=== PATIENT | female | born 1955 | race Caucasian/White ===

== ENCOUNTER 2023-01-31 10:25 | Emergency (ER) | payer MEDICARE, OTHER, SELFPAY ==
--- NOTE | ~2023-01-31 | XR_ITS ---
EXAMINATION: XR knee RT 3V DATE: 01/31/2023 11:26 INDICATION: Right knee pain TECHNIQUE: Three views of the right knee were obtained. COMPARISON: None. FINDINGS: Alignment is normal. No fracture or osteochondral lesion. There is tricompartmental osteoar thritis of the knee, moderate to severe in the medial compartment. There is a trace degenerative effu pao. Soft tissues are unremarkable. IMPRESSION: 1. Osteoarthritis without acute osseous abnormality. Reviewed, dictated and finalized at location A.
[2023-01-31 10:44] VITALS: BP 131/72; PULSE 82; RESP 16; TEMP 37.3; O2SAT 98
[2023-01-31 10:49] VITALS: BP 131/72; PULSE 82; RESP 16; TEMP 37.3; O2SAT 98
--- NOTE | 2023-01-31 11:08 | ED.LOWEXIN ---
HPI - Extremity Injury (Lower) General Chief Complaint: Extremity Injury, Lower Stated Complaint: right knee pain Time Seen by Provider: 01/31/23 11:09 Source: patient Mode of arrival: ambulatory Limitations: no limitations History of Present Illness HPI Narrative: 67-year-old female presents with complaint of right knee pain. patient reports that she recently got back from a 10 day trip to [place]. States she did a lot of walking. Reports that she has had intermittent pain to her right knee for several months but has never been this bad. Patient thinks that is related to all the walking she did and wanted. Reports that she is unable to stand on right leg for long period of time due to right knee pain. Has not called her primary care physician regarding pain. All systems reviewed and negative except as noted above. Related Data Home Medications Medication Instructions Recorded Confirmed [facility] 01/31/23 Allergies Allergy/AdvReac Type Severity Reaction Status Date / Time No Known Allergies Allergy Verified 01/31/23 10:28 Review of Systems Review of Systems: CONSTITUTIONAL: Denies fever, chills, or sweats. EYES: Denies visual changes, redness, or discharge. ENT: Denies rhinorrhea, congestion, sore throat, or otalgia. CARDIOVASCULAR: Denies chest pain, palpitations, or edema. RESPIRATORY: Denies cough or dyspnea. GASTROINTESTINAL: Denies abdominal pain, nausea, vomiting, or diarrhea. GENITOURINARY: Denies dysuria or hematuria. SKIN: Denies rash or itching. MUSCULOSKELETAL: Reports right knee pain and swelling. NEUROLOGIC: Denies headache, numbness, or weakness. PSYCHIATRIC: Denies anxiety or depression. All other systems reviewed are negative, except as documented in HPI. PMFSH Social History Social History Smoking status: Never smoker Alcohol intake: never Comments At time of signature, agree with nursing past medical, surgical, social and family history. There is no relevant family history pertinent to the presenting complaint. Exam Narrative: GENERAL: This is a well-nourished, well-developed patient, in no apparent distress. HEAD: normocephalic, atraumatic. EYES: PERRL. Sclera clear/white. Vision is grossly intact. EARS: External ears normal NOSE: External nose normal NECK: Neck supple, non-tender without lymphadenopathy, masses or thyromegaly. CARDIOVASCULAR: Regular rate and rhythm without murmurs, gallops, or rubs. RESPIRATORY: Clear to auscultation. Breath sounds equal bilaterally. No wheezes, rales, or rhonchi. SKIN: warm, Dry, intact with no suspicious lesions or rash, good texture and turgor. NEURO: awake, alert, and oriented to person, place and time. There were no obvious focal neurologic abnormalities. EXTREMITIES: Tenderness to medial aspect of right knee with swelling. No erythema or warmth. Course Course Level of Care: Express Care Visit Vital Signs Vital signs: Vital Signs Temperature 37.3 C 01/31/23 10:44 Pulse Rate 82 01/31/23 10:44 Respiratory Rate 16 01/31/23 10:44 Blood Pressure 131/72 01/31/23 10:44 Pulse Oximetry 98 01/31/23 10:44 Oxygen Delivery Room Air 01/31/23 10:44 Temperature 37.3 C 01/31/23 10:49 Pulse Rate 82 01/31/23 10:49 Respiratory Rate 16 01/31/23 10:49 Blood Pressure 131/72 01/31/23 10:49 Pulse Oximetry 98 01/31/23 10:49 Oxygen Delivery Room Air 01/31/23 10:49 Reviewed MDM - Extremity Injury (Lower) MDM Narrative Medical decision making narrative: Patient is aware of diagnosis, understands and agrees to treatment plan. Anticipatory guidance given. Patient agrees to follow-up as directed and is aware of reasons to seek care at the emergency department. Portions of this record may have been created with voice recognition software discussed x-ray results with patient. Recommend follow-up with primary care physician for further evaluation and treatment of pain. Differenti
== END 2023-01-31 12:18 | disposition home or self-care (01) ==
PROVIDERS: Emergency Provider Nurse Practitioner Family; PCP Family Medicine
DX: M17.11 Unilateral primary osteoarthritis, right knee (principal)
CPT/HCPCS: 73562; 99213; G0463

== ENCOUNTER 2023-04-07 22:41 | Emergency (ER) | payer MEDICARE, OTHER, SELFPAY ==
--- NOTE | ~2023-04-07 | XR_ITS ---
EXAMINATION: XR ribs RT 2V w CXR 2V DATE: 04/07/2023 23:03 INDICATION: Right rib pain. Cough. TECHNIQUE: Frontal and lateral views of the chest and 2 views on 3 radiographs of the right ribs were obtained. COMPARISON: None. FINDINGS: CHEST TWO VIEWS: There is mild atelectasis in left lower lung zone. No pleural effusion or pneumothor ax. The heart size is normal. There is a large hiatal hernia. There are compression fractures in mid thoracic spine, likely chronic. RIGHT RIBS: There are old healed right rib fractures. IMPRESSION: 1. No acute rib fracture identified. 2. Large hiatal hernia. 3. Mild atelectasis in left lower lung zone. Reviewed, dictated and finalized at location A.
[2023-04-07 22:47] VITALS: BP 151/81; PULSE 77; RESP 16; TEMP 36.6; O2SAT 96
[2023-04-08 04:45] VITALS: BP 179/78; PULSE 67; RESP 16; TEMP 36.8; O2SAT 98
[2023-04-08 05:30] VITALS: BP 153/88; PULSE 75; RESP 16; O2SAT 98
--- NOTE | 2023-04-08 05:37 | ED.GENADULT ---
HPI - General Adult General Chief complaint: Unspecified Stated complaint: rib pain Time Seen by Provider: 04/08/23 04:44 Source: patient Limitations: no limitations History of Present Illness HPI narrative: Patient is a 67 year od female presenting to the emergency department accompanied by for concerns that she may have broken a rib. Patient states she has been coughing for the past 4 weeks and has been placed on multiple antibiotics for this and overall is improving, however over the past 1 week she has noticed a gradual soreness devleloping in her right lower lateral ribs. Pain is better when splinting. No history of injuries. Pain is worse with coughing, yawning, deep breath, certain torso movements. Denies history of this pain in the past. No history of blood clots. No pain at rest. Non radiating. Tried Motrin tonight with no significant changes. Patient stated her right lower ribs Related Data Allergies Allergy/AdvReac Type Severity Reaction Status Date / Time No Known Allergies Allergy Verified 03/26/23 10:44 Review of Systems Review of Systems: A 10 system review of systems was completed on the patient and is negative except for what is stated in the HPI. Nursing and ancillary documentation was reviewed. [facility] Past Medical History Medical History (Updated 04/09/23 @ 00:01 by Aliya Cardoza) Acute sinus infection Allergies Arthritis BMI 33.0-33.9,adult BMI greater than 30 Surgical History Surgical History Hx of hysterectomy Hx of tonsillectomy Family History Family History Father Diabetes mellitus Mother Hypertension Sibling Sibling Heart disease Other Asthma Cerebrovascular accident Kidney disease Social History Social History Smoking status: Never smoker Second hand tobacco smoke exposure: No Alcohol intake: current Alcohol use details: WINE Substance use: never Substance use type: does not use Lack of Transportation: No Lack of Food: Never True Current Housing: I Have Housing Concerned About Future Housing: No Difficulty Paying Gas/Electric Bills: No Difficulty Paying for Meds: No Currently Unemployed: No Education: Bachelor's Degree Difficulty w/ Childcare or Family Care: No Living arrangements: with family Occupation/Education: retired Additional occupation/education comments: teacher Gender identity (if verbalized by the patient): Female Comments At time of signature, I have reviewed and agree with nursing past medical, surgical, social and family history unless otherwise noted. Please see the nursing chart for further information. There is no relevant family history pertinent to the presenting complaint. Exam Narrative: CONST: No acute distress. Well nourished. HENMT: Head is normocephalic and atraumatic. Moist mucous membranes. No posterior oropharynx erythema. EYES: No conjunctival icterus, injection, or pallor. PERRL. NECK: No meningeal signs. RESP: Able to speak in full sentences. Normal respiratory effort. CTAB. CARDIO: Regular rate. Regular rhythm. 2+ DP and radial pulses bilaterally. GI: Nondistended. No tenderness to palpation. Soft. : No CVA tenderness to palpation. SKIN: No rashes or lesions noted on exposed skin. NEURO: Oriented x3. Moves all extremities. EXTREM/MSK: No pedal edema. Mild right lateral inferior chest wall tenderness to palpation without rash or crepitus or deformity. No midline vertebral tenderness to palpation or step offs. PSYCH: Normal affect. Course Vital Signs Vital signs: Vital Signs Temperature 97.8 F 04/07/23 22:47 Pulse Rate 77 04/07/23 22:47 Respiratory Rate 16 04/07/23 22:47 Blood Pressure 151/81 H 04/07/23 22:47 Pulse Oximetry 96 04/07/23 22:47 Oxygen Deliv
[2023-04-08 06:20] VITALS: BP 157/86; PULSE 64; RESP 16; TEMP 36.8; O2SAT 98
[2023-04-08 07:12] LABS: D Dimer 0.38 ug/mL (<0.48)
[2023-04-08 07:16] VITALS: BP 150/81; PULSE 66; RESP 16; TEMP 36.8; O2SAT 100
--- NOTE | 2023-04-08 07:58 | PC.NURSE ---
respiratory came down and worked on incentive spirometer with pt
[2023-04-08 08:08] VITALS: BP 156/87; PULSE 75; RESP 18; O2SAT 95
== END 2023-04-08 08:15 | disposition home or self-care (01) ==
PROVIDERS: Emergency Provider Student in an Organized Health Care Education/Training Program; PCP Family Medicine
DX: R07.81 Pleurodynia (principal); M19.90 Unspecified osteoarthritis, unspecified site; Z90.710 Acquired absence of both cervix and uterus; K44.9 Diaphragmatic hernia without obstruction or gangrene
CPT/HCPCS: 36415; 71046; 71100; 85380; 99283

== ENCOUNTER → 2023-05-19 12:13 | Outpatient (CLI) | payer MEDICARE, OTHER, SELFPAY ==
--- NOTE | ~2023-05-19 | MM_ITS ---
EXAMINATION: MM screening kahlil BI w elizabeth HISTORY: Screening TECHNIQUE: Craniocaudal and mediolateral oblique 3-D tomosynthesis images were obtained and synthetic 2-D images were generated. CAD analysis was submitted and interpreted. COMPARISON: 08/31/2014 BREAST PARENCHYMAL COMPOSITION: There are scattered areas of fibroglandular density. FINDINGS: There is no evidence of suspicious mass, calcification, or architectural distortion to sugg est malignancy in either breast. There has been no suspicious interval change. IMPRESSION: 1. No mammographic evidence of malignancy. 2. Recommend routine screening mammography in one year. BI-RADS Category 1: Negative Reviewed, dictated and finalized at location A.
== END ==
PROVIDERS: PCP Physician Assistant Medical; Visit Provider Physician Assistant Medical
DX: Z12.31 Encounter for screening mammogram for malignant neoplasm of breast (principal)
CPT/HCPCS: 77063; 77067

== ENCOUNTER 2024-08-01 16:57 | Outpatient (CLI) | payer MEDICARE, OTHER, SELFPAY ==
--- NOTE | ~2024-08-01 | XR_ITS ---
Left Shoulder Technique: AP and scapular Y views were obtained. Clinical History: Pain Findings: No fracture or dislocation is seen. Osseous alignment is anatomic. There is mild degenerati ve change of the glenohumeral joint. There is probable subacromial spur. Soft tissues are unremarkabl e. Impression: Degenerative changes, as above. Reviewed, dictated and finalized at location . [facility] [facility] Impression: Degenerative changes, as above.
== END 2024-08-01 16:58 | disposition home or self-care (01) ==
PROVIDERS: PCP Family Medicine; Visit Provider Orthopaedic Surgery
DX: M19.012 Primary osteoarthritis, left shoulder (principal)
CPT/HCPCS: 73030

== ENCOUNTER 2025-05-19 09:55 | Outpatient (CLI) | payer MEDICARE, OTHER, SELFPAY ==
--- NOTE | 2025-05-19 10:27 | ECG_ITS ---
Test Date: 2025-05-19 10:47:32 Measurements Intervals [place] Rate: 59 P: 31 VT: 182 QRS: 12 QRSD: 87 T: 36 QT: 411 QTc: 410 Interpretive Statements SINUS BRADYCARDIA BORDERLINE ECG No previous ECG available for comparison Electronically Signed On 05-19-2025 11:11:57 CDT by Sergio Wagner D.O.
[2025-05-19 11:07] LABS: Hematocrit 47.5 % (37.0-47.0); Hemoglobin 15.7 g/dL (12.0-15.0); Immature Granulocyte Percent A 0.2 % (0-0.5); Lymphocytes Absolute Auto 1.68 K/mm3 (0.9-3.2); Mean Corpuscular HGB Conc 33.1 g/dl (32-36); Mean Corpuscular Hemoglobin 31.7 pg (26-34); Mean Corpuscular Volume 95.8 fl (80-100); Nucleated Red Blood Cells Absolute Auto 0.000 K/mm3 (0.0-0.012); Nucleated Red Blood Cells Perc 0.0 % (0.0-0.2); Platelet Count Result 225 k/mm3 (150-375); Red Blood Count 4.96 M/mm3 (4.2-5.4); White Blood Count 5.6 K/mm3 (4.5-10.0)
[2025-05-19 11:17] LABS: Hemoglobin A1C 5.5 % (<5.7)
[2025-05-19 11:58] LABS: Albumin Level 4.4 g/dL (3.5-5.1); Estimated Glomerular Filt Rate > 60; Glucose 85 mg/dL (65-110)
[2025-05-19 12:26] LABS: MRSA (PCR) NOT DETECTED (NOT DETECTE)
== END 2025-05-19 09:56 | disposition home or self-care (01) ==
LOC: ANHSURGERY 10:00
PROVIDERS: PCP Family Medicine; Visit Provider Orthopaedic Surgery
DX: Z01.818 Encounter for other preprocedural examination (principal); M17.11 Unilateral primary osteoarthritis, right knee
CPT/HCPCS: 80307; 82040; 82565; 82947; 83036; 85025; 86850; 86900; 86901; 87641; 93005

== ENCOUNTER 2025-05-29 02:14 | Day surgery (SDC) | payer MEDICARE, OTHER, SELFPAY ==
[2025-05-19 10:07] VITALS: PULSE 66; RESP 16; TEMP 36.8; O2SAT 99; BMI 34.8
--- NOTE | 2025-05-19 10:20 | PC.NURSE ---
[facility] has started construction of its new state of the art ER which will open Spring 2026. With this, we anticipate parking may be a challenge for some our surgical patients and families. Parking spaces are limited but are available for all Surgical, obstetrics, and ER patients sharing this lot. If you arrive and find you are having a hard time finding a parking space, please note that we understand the challenges, please drive around the hospital and park near Hospital Entrance 1. When you enter this entrance, you can ask a volunteer to direct or take you back to the surgical waiting area to check in. We appreciate everyone?s understanding of these expected challenges while we build for your future. Report to the Outpatient Waiting Room, entrance under the green pavilion located off [address], at time __0600am on date _05/29/25 . Planned Procedure Time: _0730am .? Time changes happen often and if your time is changed the preop area will call you the afternoon before. - You and your visitor will be asked to self-screen and do not enter if you have any COVID symptoms. Please call surgeon if you need to reschedule. - A mask is optional within the hospital at this time. Patients may have clear liquids (water, carbonated beverages, clear teas, apple juice) until 3 hours prior to surgery with a maximum of 20 ounces. - No food from midnight until time of surgery and no smoking, or chewing tobacco (or any form of nicotine). No chewing gum, candy or mints. (0430am) Take only the following medications with a SIP of water on the morning of surgery: NONE DO NOT STOP ANY OF YOUR OTHER PRESCRIPTION MEDICATIONS PRIOR TO SURGERY EXCEPT THE FOLLOWING Hold all vitamins and supplements for 3 days per anesthesiologist.Date of last dose is 05/25/25 Medications to discontinue per physician HOLD NSAIDS/ASPIRIN for [address] Beck Date to take last dose 05/23/25 Please no make-up, nail stateless, hairspray, perfume, deodorant, or body powder the day of surgery.? No jewelry (including any body piercings) or valuables the day of surgery, leave them at home.? Please take a shower or bath the night before, or the morning of, surgery with an antibacterial soap. GOLD DIAL ? Wear comfortable, loose fitting clothing. Bring overnight bag, Tennis shoes, Walker,and whatever else may need. - Jewelry must be removed prior to entering the operating room.? Rings and piercings that are not removed may be cut off. - The hospital will not accept responsibility for valuables.? - Please leave all valuables, including medications, at home the day of surgery. If you are going home after surgery, a licensed tier truck driver must drive you home.? - NO public transportation without another adult if you receive anesthesia. - We recommend that an adult stay with you for 24 hours following discharge. - We also recommend that you do not drive, make important decision, drink alcoholic beverages, or take any drugs that were not prescribed by your health care provider for at least 24 hours after your discharge time. Follow any additional instructions given to you from your surgeon. Telephone instructions given to __Patient and asked if any additional questions and then verbalized understanding. Patient advised to call surgeon office or pre surgery nurse liaison [phone] if any additional questions.
--- NOTE | 2025-05-25 07:06 | PM.IMHP ---
H&P: HPI History of Present Illness Date/Time: 05/25/25 07:06 Chief Complaint: Patient is knee pain right. She has uxia-en-mrwj arthritis of the right knee and has failed conservative treatment. At this point she would like to consider surgical intervention consisting of knee replacement surgery. Review of Systems Musculoskeletal: Musculoskeletal: Reports arthralgias, Reports joint swelling and Reports stiffness Neurologic: Reports abnormal gait [facility] Past Medical History Medical History Acute sinus infection BMI 33.0-33.9,adult Arthritis Allergies BMI greater than 30 Surgical History Surgical History Hx of hysterectomy Hx of tonsillectomy Family History Family History Father Diabetes mellitus Mother Hypertension Sibling Sibling Heart disease Other Asthma Cerebrovascular accident Kidney disease Social History Social History Smoking status: Never smoker Second hand tobacco smoke exposure: No Alcohol intake: current Drinks per week: 3 Alcohol use details: WINE Substance use: never Substance use type: does not use Lack of Transportation: No Lack of Food: Never True Current Housing: I Have Housing Concerned About Future Housing: No Difficulty Paying Gas/Electric Bills: No Difficulty Paying for Meds: No Currently Unemployed: No Education: Bachelor's Degree Difficulty w/ Childcare or Family Care: No Living arrangements: with family Occupation/Education: retired Additional occupation/education comments: teacher Gender identity (if verbalized by the patient): Female Spiritual care concerns: No Meds Home Medications and Allergies Home Medications ?Medication ?Instructions ?Recorded ?Confirmed ?Type cetirizine 10 mg tablet (Zyrtec) 10 mg PO DAILY PRN allergy symptoms 08/02/24 05/19/25 History rosuvastatin 20 mg tablet See Rx Instructions .Route 05/14/25 05/19/25 Rx .COMPLEX #90 tabs vnemoigipobk-hzxloxrr-ycehat 1 tablet PO DAILY 05/19/25 05/19/25 History tablet (Multivitamin 50 Plus tablet) naproxen 500 mg tablet 500 mg PO BID PRN pain 10/17/25 10/17/25 History Allergies Allergy/AdvReac Type Severity Reaction Status Date / Time No Known Allergies Allergy Verified 05/19/25 10:04 Exam Narrative: On exam she has motion from 3 to 100 5?. She has varus deformity grinding crepitus and pain with manipulation. Neurologically she is intact. She walks with an antalgic gait. Eyes: General: appearance normal, both eyes and all related structures Neck: Neck: supple Resp: Effort & Inspection: normal respiratory effort Cardio: Rate: regular rate Rhythm: regular rhythm Radiology Reports: Comments: [facility] [address] [place] [address] Petr Beck M.D. XRay Report Ambulatory Signed Patient: Dawna Felipe 11/10/24 07:01 XR knee RT 3V Routine Interpretation: AP lateral and skyline view of the right knee demonstrates edvx-rs-vrof arthritis right greater than left. No fracture, lesions, or masses are appreciated. Please be advised this is a medical document. It is intended for oerq-gh-xbxj communication. It is written in medical language and may contain unfamiliar abbreviations or verbiage. Medical documents are intended to carry relevant information, facts as evident, and the clinical opinion of the practitioner at the time of the encounter. This report may have been done utilizing a voice recognition system. Attempts have been made to correct errors. However, there may be uncorrected grammatical, spelling, and recognition errors present. The file time of this note does not necessarily represent the time the patient was seen. Documented By: Petr Beck MD 11/10/24 1001 Signed By: <Electronically signed by Petr Tolbert Knee X-Ray 11/10/24 Shoulder X-Ray 08/02/24 Orthopedics Result Report 11/10/24 Assessment and Plan Assessment and plan (1) Osteoarthritis of knees, bilateral: Qualifiers: Osteoarthritis type: primary Qualified Code(s): M17.0 - Bilateral primary osteoarthritis of knee Code(s): M17.0 - Bilateral primary osteoarthritis of knee Status: Acute Assessment and Plan: Patient has arthritis both knees right greater than left. She has failed conservative treatment like to consider surgical intervention. I have discussed treatment options with her in detail including the risks, benefits, limitations, and alternatives. Will proceed with total knee arthroplasty per her request. Patient understands and agrees.
[2025-05-29] VITALS (13 sets, daily range): BP systolic 117–147; BP diastolic 50–88; PULSE 70–95; RESP 12–18; TEMP 35.9–36.9; O2SAT 94–100; BMI 34.9
--- NOTE | ~2025-05-29 | XR_ITS ---
Clinical history:Postop right TKA EXAM:X-ray minimum 2 views right TECHNIQUE:2 images of the right knee were obtained Comparisons:11/10/2024 FINDINGS: Right total knee arthroplasty with postoperative changes including skin jake, edema and air. No fracture identified. No radiopaque foreign body identified. Bones appear osteopenic. IMPRESSION: 1.Right total knee arthroplasty with postoperative changes including skin jake, edema and air. No fracture identified. No radiopaque foreign body identified. Reviewed, dictated and finalized at location Q. IMPRESSION: 1.Right total knee arthroplasty with postoperative changes including skin stapl es, edema and air. No fracture identified. No radiopaque foreign body identifie deanna
--- NOTE | 2025-05-29 06:56 | WPDHPUPDATE1 ---
History and Physical Update Update Date/Time: 05/29/25 06:56 History and Physical has been reviewed, including an updated exam of the patient. There are NO changes in the patient's condition. Risks, benefits, and alternatives have been discussed and questions answered. Patient agrees to proceed with procedure. RIGHT Total Knee arthroplasty, proceed as indicated.
--- NOTE | 2025-05-29 07:04 | WPDANESEPPF ---
Anes - Initial Pre Proc Eval Procedure: Operation Date: 05/29/25 07:30 Proposed Procedures p Right Total Knee Arthroplasty - Petr Beck MD Date/Time: 05/29/25 07:04 Surgeon: Petr Beck MD Pre Op Diagnosis: OA right knee Patient Data Age: 69 Gender: F Height: 1.6 m Weight: 89.4 kg Last Vital Signs Temp 98.5 F 05/29/25 06:30 Pulse 81 05/29/25 06:30 Resp 16 05/19/25 10:07 BP 147/76 H 05/29/25 06:30 Pulse Ox 97 05/29/25 06:30 O2 Del Method Room Air 05/29/25 06:30 Allergies Allergy/AdvReac Type Severity Reaction Status Date / Time No Known Allergies Allergy Verified 05/29/25 06:48 Home Medications ?Medication ?Instructions ?Recorded ?Confirmed ?Type cetirizine 10 mg tablet (Zyrtec) 10 mg PO DAILY PRN allergy symptoms 08/02/24 05/29/25 History rosuvastatin 20 mg tablet See Rx Instructions .Route 05/14/25 05/29/25 Rx .COMPLEX #90 tabs skjoghzykanv-zzswxpvf-rwkffq 1 tablet PO DAILY 05/19/25 05/29/25 History tablet (Multivitamin 50 Plus tablet) naproxen 500 mg tablet 500 mg PO BID PRN pain 05/19/25 05/29/25 History Patient hx anesthesia problems: none Family hx anesthesia problems: none Results Review: All pre-operative results and documents have been reviewed as part of the pre-operative evaluation. [facility] Past Medical History Medical History Acute sinus infection BMI 33.0-33.9,adult Arthritis Allergies BMI greater than 30 Surgical History Surgical History Hx of hysterectomy Hx of tonsillectomy Family History Family History Father Diabetes mellitus Mother Hypertension Sibling Sibling Heart disease Other Asthma Cerebrovascular accident Kidney disease Social History Social History Smoking status: Never smoker Second hand tobacco smoke exposure: No Alcohol intake: current Drinks per week: 3 Alcohol use details: WINE Substance use: never Substance use type: does not use Lack of Transportation: No Lack of Food: Never True Current Housing: I Have Housing Concerned About Future Housing: No Difficulty Paying Gas/Electric Bills: No Difficulty Paying for Meds: No Currently Unemployed: No Education: Bachelor's Degree Difficulty w/ Childcare or Family Care: No Living arrangements: with family Occupation/Education: retired Additional occupation/education comments: teacher Gender identity (if verbalized by the patient): Female Spiritual care concerns: No Anes - Eval Final PreProcedure Day of Procedure 05/29/25 07:04 Patient weight: obese Lungs: normal air movement Airway: Mallampati scale class II Neurological: alert and oriented Last oral intake: >/= 8 hours ASA classification: II Emergent: no Anesthetic plan: proceed Anesthesia type and monitoring: general ETT and standard monitoring Results Review: All pre-operative results and documents have been reviewed as part of the pre-operative evaluation. Hyperlipidemia, BMI 34. Pt w EKG w NSR. Informed Consent: The patient's anesthetic plan and its attendant risks and benefits were discussed with the patient/family/POA. Questions were solicited and answers provided to the satisfaction of the patient/family/POA.
[2025-05-29] MEDS: ceFAZolin 2 GM in SODIUM CHLORIDE 0.9% IV 50 ML 100 ML IVPB ×2 (07:45→16:47)
--- NOTE | 2025-05-29 08:02 | WPDANESPNB ---
Anes - Peripheral Nerve Block Date/Time: 05/29/25 08:02 I have discussed with the patient/family/POA the placement of a peripheral nerve block for post-operative pain management, including associated risks, benefits, complications, and side effects. Alternative methods of post-operative analgesia were detailed. Questions were solicited and answers provided to the satisfaction of the patient/family/POA. Time-Out: A pre-procedural Time-Out was completed immediately before starting the procedure and confirmed: Patient Identification, Site, Procedure, Patient Position and the Availability of Requisite Equipment. Clinical Indications: Acute post-operative pain management requested by the operative surgeon. Nerve Block Insertion Note Anes-nerve block: adductor canal right Patient position: supine Skin prep: chlorhexidine Needle: 22 gauge, stimulating, insulated echogenic needle. Needle length: 80 mm Technique: ultrasound Injectate: other (Bupiv 0.5%, 15 mls. ) Observations: tolerated well Complications: none Procedure start time:: Procedure end time::
[2025-05-29] MEDS: SODIUM CHLORIDE 0.9% IV 37.7 ML, MORPHINE SULFATE INJ (*CRX) 2 MG, ROPivacaine HCL 1% 2... INFILTRATE (08:07)
[2025-05-29] MEDS: TRANEXAMIC ACID 1,000 MG/10 ML AMPUL 1000 MG IV PUSH (08:53)
--- NOTE | 2025-05-29 08:57 | W.PM.PROC2 ---
Procedure Note - Detailed Date of Procedure 05/29/25 Pre-op Diagnosis Ostearthritis Right knee Post-op Diagnosis Same Procedure Performed RIGHT Total Knee arthroplasty Surgeon Petr Beck MD Sign Fabricator Jerrod Aquino Anesthesia General Indications Pain and Arthritis Description of Procedure The patient was brought to operating room #7. A general anesthetic was administered. Placed on the operating table and sterilely prepped and draped in usual manner. A longitudinal incision was made. Tourniquet inflated to 300 mmHg for a total of 35 minutes. Dissection was carried down to the fascia. Medial parapatellar incision was made and the patella subluxated laterally. Patella cut from 21 to 14 mm. The tibia was cut perpendicular to the long axis and femur cut in 5 degrees of valgus. The components were trialed and the knee was noted to be stable with excellent motion. The soft tissues balanced, hemostasis obtained. All [address], 67 tibia, 62.5 femur, 34 mm patella, and 12 mm poly. Motion was 0-125 degrees with good stability in both flexion and extension. The wound was closed with #2 Vicryl, 2-0 Vicryl and jake. Procedures made particularly difficult because of the fatty tissue around the knee. [employer]plants [employer] Estimated Blood Loss 200 Drains No Packing No Pathology None sent Complications No immediate complications Condition Stable Disposition PACU [facility] Billing Surgery - Charge Forward: Surgery Billing ([id number] TKA)
[2025-05-29] MEDS: LACTATED RINGERS 1,000 ML 30 ML IV CONT ×2 (09:25)
[2025-05-29] MEDS: fentaNYL CITRATE INJ (*CRX) 100 MCG/2 ML VIAL 25 MCG IV PUSH ×5 (09:35→10:05)
--- NOTE | 2025-05-29 10:40 | PC.NURSE ---
This patient, Dawna Felipe, was admitted to [facility] Surg Room 325-01 at 1040. Patient/family oriented to hospital policies and general routines including ID bracelet, bed and alarms, visiting hours, pain management, procedures, bathroom and other care routines, personal items, smoking policy, room service/diet, and visiting hours. Information on how to activate the Rapid Response Team has been discussed. Patient/Family are encouraged to report perceived risks to care and to ask questions if they do not understand what they are told or what they should do.
[2025-05-29] MEDS: ONDANSETRON INJ 4 MG/2 ML VIAL IV PUSH (13:36)
[2025-05-29] MEDS: HYDROcodone/acetaminophen (*CRX) 5-325 MG TABLET 1 TAB PO ×2 (13:37→22:27)
[2025-05-29] MEDS: CYCLOBENZAPRINE HCL 10 MG TABLET PO (13:41)
[2025-05-29] MEDS: SODIUM CHLORIDE 0.9% IV 1,000 ML 125 ML IV CONT (14:40)
--- NOTE | 2025-05-29 15:36 | PM.IMCN ---
Assessment and Plan Assessment and plan (1) Osteoarthritis of knees, bilateral: Qualifiers: Osteoarthritis type: primary Qualified Code(s): M17.0 - Bilateral primary osteoarthritis of knee Code(s): M17.0 - Bilateral primary osteoarthritis of knee Status: Acute Plan Osteoarthritis status post right knee replacement Continue p.r.n. pain control with IV morphine and p.r.n. [place] DVT prophylaxis per primary team Decrease IV fluid to 75, advance diet per primary team. PT OT by primary team. Hyperlipidemia Continue home medication. DVT prophylaxis on subQ Lovenox. Patient is full code HPI Date of Consult Consult date: 05/29/25 Requesting Physician: Petr Beck MD Primary Care Provider: Ryne Villalta MD Consult Narrative Narrative: Dawna Felipe is a 69 year old female past medical history of hyperlipidemia was admitted for right knee replacement by Orthopedic surgery. We consulted for medical management today. Patient noted no chest pain shortness O breath abdominal pain vomiting diarrhea focal symptoms prior to admission and certainly no symptoms today except for pain at the site of surgery. Vital signs stable within normal limits. Labs mostly unremarkable. Review of Systems Review of Systems: All other systems reviewed and negative except noted in history above. [facility] Past Medical History Medical History Acute sinus infection BMI 33.0-33.9,adult Arthritis Allergies BMI greater than 30 Surgical History Surgical History Hx of hysterectomy Hx of tonsillectomy Family History Family History Father Diabetes mellitus Mother Hypertension Sibling Sibling Heart disease Other Asthma Cerebrovascular accident Kidney disease Social History Social History Smoking status: Never smoker Second hand tobacco smoke exposure: No Alcohol intake: never Drinks per week: 3 Alcohol use details: WINE Substance use: never Substance use type: does not use Lack of Transportation: No Lack of Food: Never True Current Housing: I Have Housing Concerned About Future Housing: No Difficulty Paying Gas/Electric Bills: No Difficulty Paying for Meds: No Currently Unemployed: No Education: Bachelor's Degree Difficulty w/ Childcare or Family Care: No Living arrangements: with family Occupation/Education: retired Additional occupation/education comments: teacher Gender identity (if verbalized by the patient): Female Spiritual care concerns: No Meds Home Medications and Allergies Home Medications ?Medication ?Instructions ?Recorded ?Confirmed ?Type cetirizine 10 mg tablet (Zyrtec) 10 mg PO DAILY PRN allergy symptoms 08/02/24 05/29/25 History rosuvastatin 20 mg tablet See Rx Instructions .Route 05/14/25 05/29/25 Rx .COMPLEX #90 tabs bgvyeghryvul-tuuhpcse-dqqfmf 1 tablet PO DAILY 05/19/25 05/29/25 History tablet (Multivitamin 50 Plus tablet) naproxen 500 mg tablet 500 mg PO BID PRN pain 05/19/25 05/29/25 History Allergies Allergy/AdvReac Type Severity Reaction Status Date / Time No Known Allergies Allergy Verified 05/29/25 13:20 Vital Signs Vital Signs - 24 hr 05/29/25 06:30 05/29/25 09:25 05/29/25 09:40 Temperature 98.5 F 97.1 F L Pulse Rate 81 82 76 Respiratory Rate 16 18 Blood Pressure 147/76 H 143/73 H 139/74 Pulse Oximetry 97 94 100 Oxygen Delivery Room Air Simple Face Mask Simple Face Mask Oxygen Flow Rate 8 8 05/29/25 09:55 05/29/25 10:10 05/29/25 10:25 Temperature Pulse Rate 70 72 75 Respiratory Rate 14 12 12 Blood Pressure 129/64 133/76 141/66 H Pulse Oximetry 99 96 94 Oxygen Delivery Nasal Cannula Nasal Cannula Nasal Cannula Oxygen Flow Rate 2 2 2 05/29/25 10:45 05/29/25 11:00 05/29/25 11:30 Temperature 96.8 F L 97.3 F L 97.0 F L Pulse Rate 71 70 74 Respiratory Rate 14 15 16 Blood Pressure 129/69 124/67 129/88 Pulse Oximetry 95 98 99 Oxygen Delivery Oxygen Flow Rate 05/29/25 12:30 05/29/25 14:04 05/29/25 14:49 Temperature 98.1 F Pulse Rate 87 Respiratory Rate 16 Blood Pressure 122/64 Pulse Oximetry 94 95 Oxygen Delivery Room Air Room Air Oxygen Flow Rate Exam Narrative: General: alert and comfortable Eyes: EOMI, PERRLA ENNT External ears normal, Neck is supple, no masses, Respiratory systems: Clear to auscultation Cardiovascular S1, S2, normal rhythm, no murmur, rub, or gallop; no thrill or palpable murmurs on palpation. Gastrointestinal: soft, non-tender, and non-distended abdomen with no masses; BS present Skin: no rash, lesions, ulcerations, subcutaneous nodules or induration Musculoskeletal: Right knee surgical dressing clean and dry. Neurologic: Alert and oriented x3, non focal Mental Status Exam: normal affect Hospitalist MIPS Advance Care Plan I have confirmed that the patient's Advanced Care Plan is present, code status is documented, or surrogate decision maker is listed in patient medical record.: Yes Medication Reconciliation I have utilized all available resources to obtain, update and review the patients current medications (includes all prescriptions, OTC, herbals, cannabis, and nutritional supplements).: Yes
[2025-05-29] MEDS: CELECOXIB 200 MG CAPSULE PO (16:47)
[2025-05-29] MEDS: RIVAROXABAN 10 MG TABLET PO (16:47)
[2025-05-29] MEDS: SENNA/DOCUSATE SODIUM TABLET 2 TAB PO (16:48)
[2025-05-30] MEDS: ceFAZolin 2 GM in SODIUM CHLORIDE 0.9% IV 50 ML 100 ML IVPB ×2 (00:05→08:16)
[2025-05-30 00:14] VITALS: BP 109/48; PULSE 75; RESP 16; TEMP 36.7; O2SAT 94
[2025-05-30 04:17] VITALS: BP 108/54; PULSE 83; RESP 16; TEMP 36.8; O2SAT 94
[2025-05-30 05:48] LABS: Hematocrit 36.3 % (37.0-47.0); Hemoglobin 11.8 g/dL (12.0-15.0); Immature Granulocyte Percent A 0.4 % (0-0.5); Lymphocytes Absolute Auto 1.20 K/mm3 (0.9-3.2); Mean Corpuscular HGB Conc 32.5 g/dl (32-36); Mean Corpuscular Hemoglobin 31.6 pg (26-34); Mean Corpuscular Volume 97.1 fl (80-100); Nucleated Red Blood Cells Absolute Auto 0.000 K/mm3 (0.0-0.012); Nucleated Red Blood Cells Perc 0.0 % (0.0-0.2); Platelet Count Result 207 k/mm3 (150-375); Red Blood Count 3.74 M/mm3 (4.2-5.4); White Blood Count 11.2 K/mm3 (4.5-10.0)
[2025-05-30 06:10] LABS: Alanine Aminotransferase 19 U/L (6-35); Albumin Level 3.3 g/dL (3.5-5.1); Alkaline Phosphatase 63 U/L (38-126); Anion Gap 3 mmol/L (4-12); Aspartate Amino Transferase 30 U/L (14-36); Bilirubin,Total 0.7 mg/dL (0.2-1.3); Blood Urea Nitrogen 14 mg/dL (7-17); Calcium 8.8 mg/dL (8.4-10.2); Carbon Dioxide 26 mmol/L (22-30); Chloride 103 mmol/L (98-107); Estimated CRCL calculation 76 ml/min; Estimated Glomerular Filt Rate > 60; Glucose 108 mg/dL (65-110); Magnesium 2.0 mg/dL (1.6-2.3); Potassium 4.0 mmol/L (3.4-5.0); Sodium 132 mmol/L (137-145); Total Protein 5.8 g/dL (6.3-8.2)
[2025-05-30 07:41] VITALS: BP 121/62; PULSE 86; RESP 16; TEMP 36.3; O2SAT 97
[2025-05-30] MEDS: SENNA/DOCUSATE SODIUM TABLET 2 TAB PO (08:16)
[2025-05-30] MEDS: CELECOXIB 200 MG CAPSULE PO (08:16)
[2025-05-30] MEDS: HYDROcodone/acetaminophen (*CRX) 5-325 MG TABLET 1 TAB PO (08:17)
--- NOTE | 2025-05-30 11:10 | PM.PNORT ---
Progress Note: A&P Assessment and Plan (1) History of knee replacement procedure of right knee: Code(s): Z96.651 - Presence of right artificial knee joint Status: Acute Assessment and Plan: Patient is status post total knee arthroplasty right for osteoarthritis. The pain is resolving she is doing well. She is ambulating and moving her knee well. She can be dismissed home. Follow-up 2 weeks for jake out. If she has any changes or problems she will call. Dismissed medication hydrocodone for pain doxycycline and Xarelto. Subjective Subjective Date/Time Seen: 05/30/25 11:10 Principal diagnosis: RIGHT Total Knee arthroplasty for osteoarthritis Review of Systems Review of Systems: All other systems reviewed and negative except noted in history above. Exam Narrative: Patient is moving her knee well. Her dressing is dry and intact. He has mild pain to palpation is able ambulate well. Neurologically she is intact. Objective Data Vital Signs Vital Signs: Vital Signs - 24 hr 05/29/25 11:30 05/29/25 12:30 05/29/25 14:04 Temperature 97.0 F L 98.1 F Pulse Rate 74 87 Respiratory Rate 16 16 Blood Pressure 129/88 122/64 Pulse Oximetry 99 94 Oxygen Delivery Room Air 05/29/25 14:49 05/29/25 15:06 05/29/25 16:00 Temperature 96.7 F L Pulse Rate 75 Respiratory Rate 16 Blood Pressure 126/65 Pulse Oximetry 95 97 Oxygen Delivery Room Air Room Air 05/29/25 20:00 05/29/25 20:17 05/30/25 00:14 Temperature 97.3 F L 98.1 F Pulse Rate 95 75 Respiratory Rate 16 16 Blood Pressure 117/50 L 109/48 L Pulse Oximetry 95 94 Oxygen Delivery Room Air 05/30/25 04:17 05/30/25 07:41 Temperature 98.3 F 97.3 F L Pulse Rate 83 86 Respiratory Rate 16 16 Blood Pressure 108/54 L 121/62 Pulse Oximetry 94 97 Oxygen Delivery Intake/Output Intake/Output: Intake & Output 05/27/25 05/28/25 05/29/25 05/30/25 23:59 23:59 23:59 23:59 Intake Total 1024.2 690 Output Total 1100 Balance 1024.2 -410 Meds/Results Medications: Active Medications Generic Name Dose Route Start Last Admin Trade Name Freq PRN Reason Stop Dose Admin Hydrocodone Bitart/Acetaminophen 1 tab 05/29/25 10:32 05/30/25 08:17 Hydrocodone/Acetaminophen (*Crx) 5-325 Mg Tablet PO 1 tab Q4H PRN Administration Pain Rated 4-6 Hydrocodone Bitart/Acetaminophen 1 tab 05/29/25 10:32 Hydrocodone/Acetaminophen (*Crx) 7.5-325 Mg Tablet PO Q4H PRN Pain Rated 7-10 Celecoxib 200 mg 05/29/25 17:00 05/30/25 08:16 Celecoxib 200 Mg Capsule PO 200 mg BIDWM [place] Administration Cyclobenzaprine HCl 10 mg 05/29/25 10:32 05/29/25 13:41 Cyclobenzaprine Hcl 10 Mg Tablet PO 10 mg Q8H PRN Administration Spasms Diphenhydramine HCl 25 mg 05/29/25 10:32 Diphenhydramine Hcl Inj 50 Mg/Ml Vial IV PUSH Q6H PRN Itching Hydromorphone HCl 1 mg 05/29/25 10:32 Hydromorphone Hcl Inj (*Crx) 1 Mg/Ml Syr IV PUSH Q2H PRN Breakthrough Pain Rated 7-10 or NPO Hydromorphone HCl 0.5 mg 05/29/25 10:32 Hydromorphone Hcl Inj (*Crx) 1 Mg/Ml Syr IV PUSH Q2H PRN Breakthrough Pain Rated 4-6 or NPO Ibuprofen 800 mg in 200 mls @ 400 mls/hr 05/29/25 10:32 Caldolor 800 Mg/200 Ml IVPB Q6H PRN Breakthrough Pain Rated 1-3 or NPO Naloxone HCl 0.1 mg 05/29/25 10:32 Naloxone Hcl 0.4 Mg/Ml Vial IV PUSH Q2M PRN Opiate Reversal Ondansetron HCl 4 mg 05/29/25 10:32 05/29/25 13:36 Ondansetron Inj 4 Mg/2 Ml Vial IV PUSH 4 mg Q4H PRN Administration Nausea And Vomiting Polyethylene Glycol 17 gm 05/30/25 09:00 05/30/25 08:16 Polyethylene Glycol 3350 17 Gm Powd.Pack PO 17 gm QAM [place] Administration Rivaroxaban 10 mg 05/29/25 17:00 05/29/25 16:47 Rivaroxaban 10 Mg Tablet PO 06/09/25 17:01 10 mg DAILY@17 [place] Administration Senna/Docusate Sodium 2 tab 05/29/25 17:00 05/30/25 08:16 Senna/Docusate Sodium Tablet PO 2 tab BID [place] Administration Radiology Results: ITS Impressions Knee X-Ray 05/29/25 10:21 IMPRESSION: 1.Right total knee arthroplasty with postoperative changes including skin jake, edema and air. No fracture identified. No radiopaque foreign body identified. Labs Labs: Laboratory Results - last 24 hr 05/30/25 05:20 WBC 11.2 H RBC 3.74 L Hgb 11.8 L D Hct 36.3 L MCV 97.1 MCH 31.6 MCHC 32.5 RDW 13.3 Plt Count 207 MPV 9.9 Immature Gran % (Auto) 0.4 Neut % (Auto) 80.8 H Lymph % (Auto) 10.7 L Lipscomb % (Auto) 7.9 Eos % (Auto) 0.0 Baso % (Auto) 0.2 Lymph # (Auto) 1.20 Lipscomb # (Auto) 0.9 H Eos # (Auto) 0.0 Baso # (Auto) 0.0 Abs Immat Gran (auto) 0.05 H Absolute Neuts (auto) 9.0 H Absolute Nucleated RBC 0.000 Nucleated RBC % 0.0 Sodium 132 L Potassium 4.0 Chloride 103 Carbon Dioxide 26 Anion Gap 3 L BUN 14 Creatinine 0.61 L Estim Creat Clear Calc 76 Estimated GFR > 60 Glucose 108 Calcium 8.8 Magnesium 2.0 Total Bilirubin 0.7 AST 30 ALT 19 Alkaline Phosphatase 63 Total Protein 5.8 L Albumin 3.3 L
== END 2025-05-30 12:15 | disposition home or self-care (01) ==
LOC: ANHSURGERY 06:01 → ANH3MEDSUR 10:35
PROVIDERS: Internal Medicine; PCP Family Medicine; Visit Provider Orthopaedic Surgery
PROC: (CPT 27447; principal; 2025-05-29 07:30)
DX: M17.11 Unilateral primary osteoarthritis, right knee (principal); G89.18 Other acute postprocedural pain; E78.5 Hyperlipidemia, unspecified; E66.9 Obesity, unspecified; Z68.34 Body mass index [BMI] 34.0-34.9, adult; Z79.1 Long term (current) use of non-steroidal anti-inflammatories (NSAID); Z98.890 Other specified postprocedural states; Z82.49 Family history of ischemic heart disease and other diseases of the circulatory system
CPT/HCPCS: 64447; 27447; 36415; 73560; 80053; 83735; 85025; 97110; 97161; 97165; 97530; 97535; J0690; A9270; C1713; C1776; J0166; J1100; J1885; J2003; J2250; J2270; J2405; J2704; J2795; J3010; J3290; J7030; J7120

== ENCOUNTER 2025-06-13 10:14 | Outpatient (CLI) | payer MEDICARE, OTHER, SELFPAY ==
--- NOTE | ~2025-06-13 | US_ITS ---
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 Findings: Deep Venous System:There is thrombus within the posterior tibial veins with diminished flow, the remaining visualized deep venous system is unremarkable. Superficial Venous SystemNo superficial thrombophlebitis. Soft tissues: Soft tissues are unremarkable. Impression: DVT detailed above Reviewed, dictated and finalized at location P. R OPERATOR RAW SALT Impression: DVT detailed above
== END 2025-06-13 10:15 | disposition home or self-care (01) ==
PROVIDERS: PCP Family Medicine; Visit Provider Orthopaedic Surgery
DX: M79.604 Pain in right leg (principal); M79.89 Other specified soft tissue disorders
CPT/HCPCS: 93971